=== PATIENT | male | born 1960 | race Caucasian/White ===

== ENCOUNTER 2016-11-01 10:38 | Day surgery (SDC) | payer SELFPAY ==
[2016-11-01] MEDS ORDERED: Sodium Chloride 0.9% 100 ML IV ONE (13:06)
[2016-11-01 13:08] VITALS: BMI 29.6
[2016-11-01] MEDS ORDERED: Propofol 10 mg/ml Inj (20 ML) ONE (13:36)
[2016-11-01] MEDS ORDERED: Sodium Chloride 0.9% 250 ML IV ONE (14:00)
[2016-11-01 14:19] VITALS: RESP 18
[2016-11-01 14:35] VITALS: BP 97/62; PULSE 54; TEMP 96.9; O2SAT 99
== END 2016-11-01 14:50 | disposition home or self-care (01) ==
LOC: H.ENDO 10:38
PROVIDERS: ATTEND Internal Medicine Gastroenterology
DX: Z12.11 Encounter for screening for malignant neoplasm of colon (principal); E78.5 Hyperlipidemia, unspecified; E55.9 Vitamin D deficiency, unspecified; I12.9 Hypertensive chronic kidney disease with stage 1 through stage 4 chronic kidney disease, or unspecified chronic kidney disease; N18.9 Chronic kidney disease, unspecified